=== PATIENT | female | born 1970 | race Caucasian/White ===

== ENCOUNTER → 2020-11-11 | Outpatient (CLI) | payer BC | LOC: LAB 09:17 | PROVIDERS: ATTEND Nurse Practitioner | DX: Z20.822 Contact with and (suspected) exposure to COVID-19 (principal) ==

== ENCOUNTER → 2020-12-23 | Outpatient (CLI) | payer BC | LOC: LAB 14:52 | PROVIDERS: ATTEND Family Medicine | DX: R05 Cough (principal); Z20.822 Contact with and (suspected) exposure to COVID-19 ==

== ENCOUNTER → 2021-01-02 | Outpatient (CLI) | payer BC | LOC: MRI 10:09 | PROVIDERS: ATTEND Family Medicine | DX: T85.43XA Leakage of breast prosthesis and implant, initial encounter (principal); R92.8 Other abnormal and inconclusive findings on diagnostic imaging of breast; X58.XXXA Exposure to other specified factors, initial encounter ==

== ENCOUNTER → 2021-06-12 | Outpatient (CLI) | payer BC, OTHER | LOC: ULTRA 08:22 | PROVIDERS: ATTEND Family Medicine | DX: N95.0 Postmenopausal bleeding (principal) ==